=== PATIENT | female | born 1960 ===

== ENCOUNTER 2025-07-07 06:16 | Day surgery (SDC) | payer MEDICARE, OTHER, SELFPAY | END 2025-07-07 09:11 | disposition home or self-care (01) | LOC: GI 06:16 | PROVIDERS: ATTENDING PHYSICIAN Internal Medicine Gastroenterology | DX: Z12.11 Encounter for screening for malignant neoplasm of colon (principal); D12.5 Benign neoplasm of sigmoid colon; K63.5 Polyp of colon; K63.89 Other specified diseases of intestine; K57.30 Diverticulosis of large intestine without perforation or abscess without bleeding; K64.8 Other hemorrhoids; Z86.0100 Personal history of colon polyps, unspecified; Z83.719 Family history of colon polyps, unspecified | CPT/HCPCS: 45385; 45380; 45381; 88305 ==

== ENCOUNTER 2025-09-15 06:06 | Day surgery (SDC) | payer MEDICARE, OTHER, SELFPAY ==
[2025-09-15 07:19] VITALS: BP 121/74
[2025-09-15 07:21] VITALS: BMI 34.4
[2025-09-15 08:48] VITALS: BP 108/64
[2025-09-15 09:00] VITALS: BP 76/42
[2025-09-15 09:03] VITALS: BP 110/61
[2025-09-15 09:09] VITALS: BP 89/72
[2025-09-15 09:10] VITALS: BP 110/69
== END 2025-09-15 09:25 | disposition home or self-care (01) ==
LOC: SDS 06:06
PROVIDERS: ATTENDING PHYSICIAN Internal Medicine Gastroenterology
DX: D12.3 Benign neoplasm of transverse colon (principal); K64.0 First degree hemorrhoids
CPT/HCPCS: 45390; 88305